=== PATIENT | male | born 1960 | race Caucasian/White ===

== ENCOUNTER 2024-05-22 18:57 | Emergency (ER) | payer SELFPAY ==
[2024-05-22] MEDS: Sodium Chloride 0.9% 2.5 ML Syringe FLUSH PRN (19:11)
[2024-05-22] MEDS: Sodium Chloride 0.9% 1,000 ML IV STA ×2 (19:11→19:58)
[2024-05-22] MEDS: Sodium Chloride 0.9% 10 ML Syringe FLUSH PRN (19:11)
[2024-05-22 19:44] LABS: A/G RATIO 0.9 (0.9-1.6); ALBUMIN 2.6 g/dL (3.4-5.0); BILIRUBIN TOTAL 0.4 mg/dL (0.2-1.0); CALCIUM 7.7 mg/dL (8.5-10.1); CARBON DIOXIDE,CO2 20.9 mmol/L (21.0-32.0); CREATININE 3.8 mg/dL (0.8-1.3); EST CRCL DRUG DOSING (CG) 22.12 mL/min; POTASSIUM,K 4.6 mmol/L (3.5-5.1); PROTEIN TOTAL,TP 5.6 g/dL (6.4-8.2)
[2024-05-22 19:47] LABS: MAGNESIUM 1.8 mg/dL (1.8-2.4)
[2024-05-22 19:54] LABS: HEMATOCRIT 50.8 % (42.0-52.0); HEMOGLOBIN 17.4 g/dL (14.0-18.0); MEAN CORPUSCULAR HEMOGLOBIN 28.8 pg (28.0-32.0); MEAN CORPUSCULAR HGB CONC 34.3 g/dL (32.0-36.0); MEAN CORPUSCULAR VOLUME 84.1 fL (83.0-99.0); NRBC ABSOLUTE 0.03 K/uL (0.00-0.02); NRBC PERCENT 0.1 /100WBC (0.0-0.2); RED BLOOD CELL COUNT 6.04 M/uL (4.52-5.90); WHITE BLOOD CELL COUNT,WBC 20.49 K/uL (3.9-11.3)
[2024-05-22 20:12] LABS: PLATELET COUNT,PLT 33 K/uL (150-400)
[2024-05-22] MEDS: Azithromycin 500 MG in Sodium Chloride 0.9% 250 ML IV SCH (20:40)
[2024-05-22] MEDS: cefTRIAXone 2 GM in Sodium Chloride 0.9% 50 ML IV ONE (20:40)
[2024-05-22 21:44] LABS: BAND ABSOLUTE MAN 2.46; BAND PERCENT MAN 12 %; SEG NEUTROPHILS ABSOLUTE MAN 9.63 K/uL (1.80-7.70); SEG NEUTROPHILS PERCENT MAN 47 % (41-71)
[2024-05-22 21:45] LABS: EOSINOPHILS ABSOLUTE MAN 0.41 K/uL (0.00-0.45); EOSINOPHILS PERCENT MAN 2 % (0-6); METAMYELOCYTE ABSOLUTE MAN 0.61; METAMYELOCYTE PERCENT MAN 3 %; MONOCYTES ABSOLUTE MAN 3.28 K/uL (0.00-0.80); MONOCYTES PERCENT MAN 16 % (0-8)
[2024-05-22 21:46] LABS: PLATELET CLUMPS FEW
[2024-05-22 21:52] LABS: LYMPHOCYTES % ATYPICAL MANUAL 5; LYMPHOCYTES ABSOLUTE MAN 3.07 K/uL (1.00-4.80); LYMPHOCYTES PERCENT MAN 15 % (24-44)
[2024-05-22 22:21] LABS: BASE EXCESS VENOUS -8.3 (-2.0-3.0); PH,VENOUS 7.3 (7.31-7.41)
[2024-05-22 22:29] LABS: BICARBONATE,ARTERIAL 14 mEq/L (22-26); PCO2 ARTERIAL 27 mmHG (35-45); PO2 ARTERIAL 71 mmHG (80-105)
[2024-05-22] MEDS: Albuterol/Ipratropium 3.0-0.5 MG/3 ML Neb Soln NEB ONE (22:40)
[2024-05-22] MEDS: Sodium Chloride 0.9% 500 ML IV STA (22:40)
[2024-05-22] MEDS: Norepinephrine Bit/D5W Premix 250 ML IV SCH (22:46)
[2024-05-25 14:07] LABS: NEUTROPHILS% 36 % (41-71)
== END 2024-05-23 01:24 | disposition critical access hospital (66) ==
LOC: MW.ED 18:57
DX: A41.9 Sepsis, unspecified organism (principal); J96.01 Acute respiratory failure with hypoxia; D69.6 Thrombocytopenia, unspecified; N17.9 Acute kidney failure, unspecified; J18.9 Pneumonia, unspecified organism; Z79.899 Other long term (current) drug therapy; Z75.8 Other problems related to medical facilities and other health care
CPT/HCPCS: 36415; 36600; 70450; 71045; 71250; 72125; 74176; 80053; 82803; 83690; 83735; 84484; 85025; 87040; 93005; 94640; 96361; 96365; 96366; 96368; 99285; J0456; J0696; J3490; J7030; J7040; J7050; 93010; 99291; 99292; J7620-GY